=== PATIENT | male | born 1980 | race Caucasian/White ===

== ENCOUNTER 2017-10-18 22:41 | Inpatient (IN) | payer OTHER ==
[2017-10-18 23:08] VITALS: BMI 25.8
[2017-10-18] MEDS ORDERED: Sodium Chloride 0.9% 1,000 ML IV ONE (23:35)
[2017-10-18] MEDS ORDERED: Multivitamin (MVI) 10 ML, Thiamine 100 MG, Folic Acid 1 MG in Sodium Chloride 0.9% 1,00... IV ONE (23:38)
[2017-10-19] MEDS ORDERED: Morphine 4 MG/ML VIAL ONE
[2017-10-19 00:09] LABS: INR 0.9; PROTHROMBIN TIME 10.1 SECONDS (9.7-12.2)
[2017-10-19 00:17] LABS: BASO % 0.7 % (0.0-2.0); EOS % 1.2 % (0.0-4.0); HEMOGLOBIN 13.7 g/dL (12.0-18.0); LYMPH # 1.1 K/uL (1.0-4.3); LYMPH % 36.8 % (20.0-40.0); MEAN CELL VOLUME 93.8 fL (80.0-94.0); MEAN CORPUSCULAR HEMOGLOBIN 32.3 pg (27.0-31.0); MEAN CORPUSCULAR HGB CONC 34.4 g/dL (33.0-37.0); MEAN PLATELET VOLUME 7.6 fL (7.2-11.7); MONO # 0.2 K/uL (0.0-0.8); MONO % 6.4 % (0.0-10.0); NEUT # 1.6 K/uL (1.8-7.0); NEUT % 54.9 % (50.0-75.0); NRBC % 0.1 % (0.0-2.0); RBC 4.25 Mil/uL (4.40-5.90); RED CELL DISTRIBUTION WIDTH 14.8 % (11.5-14.5); WHITE BLOOD COUNT 2.9 K/uL (4.8-10.8)
[2017-10-19 00:24] LABS: ALB/GLOB RATIO 1.3 (1.0-2.1); ALBUMIN 4.8 g/dL (3.5-5.0); ALT/SGPT 226 U/L (21-72); AST/SGOT 286 U/L (17-59); BLOOD UREA NITROGEN 6 mg/dL (9-20); CALCIUM 7.6 mg/dl (8.6-10.4); GFR AFRICAN-AMERICAN > 60; GFR NON-AFRICAN AMERICAN > 60; LIPASE 451 U/L (23-300)
--- NOTE | 2017-10-19 01:03 | C.PDOC ---
History Of Present Illness <Gab Pham - Last Filed: 10/19/17 11:38> <Lilli Cash - Last Filed: 10/19/17 20:08> 37 year old male is brought to the ED by his for evaluation of epistaxis, bloody vomit and abdominal pain. Patient's states patient has been drinking for 17 days straight and has not eaten much food. Patient was sober for 3 months and then 17 days ago started drinking again. Patient has noticed his face and hands are swollen. Patient denies fever, chills, back pain, diarrhea. (Lilli Cash) <Gab Pham M - Last Filed: 10/19/17 11:38> History Per: Patient History/Exam Limitations: no limitations Onset/Duration Of Symptoms: Days Current Symptoms Are (Timing): Still Present Location Of Pain/Discomfort: Diffuse Radiation Of Pain To:: None Quality Of Discomfort: "Pain" Associated Symptoms: Nausea, Vomiting Exacerbating Factors: None Alleviating Factors: None Recent travel outside of the [place]: No Additional History Per: Patient <Lilli Cash - Last Filed: 10/19/17 20:08> Time Seen by Provider: 10/18/17 23:26 Chief Complaint (Nursing): GI Problem Past Medical History Reviewed: Historical Data, Nursing Documentation, Vital Signs - Medical History PMH: HTN (unverified), Seizures Surgical History: No Surg Hx Family History: States: Unknown Family Hx - Social History Hx Tobacco Use: No Hx Alcohol Use: Yes Hx Substance Use: No (denies) - Immunization History Hx Tetanus Toxoid Vaccination: No Hx Influenza Vaccination: No Hx Pneumococcal Vaccination: No <Lilli Cash - Last Filed: 10/19/17 20:08> Vital Signs: Last Vital Signs Temp 99 F 10/19/17 16:04 Pulse 91 H 10/19/17 16:04 Resp 20 10/19/17 16:04 BP 133/78 10/19/17 16:04 Pulse Ox 96 10/19/17 16:04 - [facility] Procedures ALCOHOL DETOXIFICATION (05/08/14) INFLUENZA VACCINATION (05/08/14) Review Of Systems Constitutional: Negative for: Fever, Chills Cardiovascular: Negative for: Chest Pain, Palpitations Respiratory: Negative for: Cough, Shortness of Breath Gastrointestinal: Positive for: Vomiting, Abdominal Pain. Negative for: Nausea Skin: Negative for: Rash Neurological: Negative for: Weakness, Numbness <Lilli Cash - Last Filed: 10/19/17 20:08> Physical Exam - Physical Exam Appears: Non-toxic, No Acute Distress Skin: Normal Color, Warm, Dry Head: Atraumatic, Normacephalic Eye(s): bilateral: Normal Inspection Nose: No Discharge Oral Mucosa: Moist Neck: Normal ROM, Supple Chest: Symmetrical Cardiovascular: Rhythm Regular, No Murmur Respiratory: Normal Breath Sounds, No Rales, No Rhonchi, No Wheezing Gastrointestinal/Abdominal: Soft, No Tenderness, No Guarding, No Rebound Extremity: Normal ROM, No Tenderness, No Swelling Neurological/Psych: Oriented x3 Gait: Unable To Assess <Lilli Cash - Last Filed: 10/19/17 20:08> ED Course And Treatment - Laboratory Results Result Diagrams: 10/18/17 23:56 10/18/17 23:56 <Gab Pham - Last Filed: 10/19/17 11:38> - Laboratory Results Result Diagrams: 10/19/17 12:00 10/18/17 23:56 O2 Sat by Pulse Oximetry: 95 (On RA) Pulse Ox Interpretation: Normal <Lilli Cash - Last Filed: 10/19/17 20:08> Medical Decision Making <Gab Pham - Last Filed: 10/19/17 11:38> <Lilli Cash - Last Filed: 10/19/17 20:08> Medical Decision Making: Impression: alcoholic gastritis Plan: * Labs * Ativan 2 mg IVP * Morphine 4 mg IVP * IV fluids * Protonix 40 mg IVP * Zofran 4 mg IVP (Lilli Cash) Disposition <Gab Pham - Last Filed: 10/19/17 11:38> - Disposition Disposition Time: 20:07 <Lilli Cash - Last Filed: 10/19/17 20:08> - Disposition Disposition: HOSPITALIZED Condition: FAIR - Clinical Impression Clinical Impression: Abdominal pain, Alcoholic hepatitis <Gab Pham - Last Filed: 10/19/17 11:38> - Scribe Statement The provider has reviewed the documentation as recorded by the Scribe <Lilli Cash - Last Filed: 10/19/17 20:08> - Scribe Statement Gagan Hall All medical record entries made by the Scribe were at my direction and personally dictated by me. I have reviewed the chart and agree that the record accurately reflects my personal performance of the history, physical exam, medical decision making, and the department course for this patient. I have also personally directed, reviewed, and agree with the discharge instructions and disposition. (Lilli Cash) Addendum <Gab Pham - Last Filed: 10/19/17 11:38> <Lilli Cash - Last Filed: 10/19/17 20:08> Addendum: Received patient in sign out. Pt with abd. pain and controlled epistaxis. (+) pancreatitis. Cased discussed with hospitalist and will admit to medical surgical floor. 10/19/17 11:38 (Gab Pham) Disposition Discussed With Dr.: Ayad Lucia Doctor Will See Patient In The: Hospital Counseled Patient/Family Regarding: Studies Performed Disposition Time: 11:40 <Gab Pham - Last Filed: 10/19/17 11:38> <Lilli Cash - Last Filed: 10/19/17 20:08> Clinical Impression: Abdominal pain, Alcoholic hepatitis Disposition: HOSPITALIZED Condition: FAIR
[2017-10-19] MEDS ORDERED: Thiamine 100 mg/ml Inj IV ONE (10:52)
[2017-10-19] MEDS ORDERED: Sodium Chloride 0.9% 1,000 ML IV ONE (10:58)
[2017-10-19] MEDS ORDERED: Thiamine 100 mg/ml Inj ONE (11:21)
[2017-10-19 12:04] LABS: BASO % 0.3 % (0.0-2.0); EOS % 0.9 % (0.0-4.0); HEMOGLOBIN 12.4 g/dL (12.0-18.0); LYMPH # 0.7 K/uL (1.0-4.3); LYMPH % 17.3 % (20.0-40.0); MEAN CELL VOLUME 94.3 fL (80.0-94.0); MEAN CORPUSCULAR HEMOGLOBIN 32.2 pg (27.0-31.0); MEAN CORPUSCULAR HGB CONC 34.2 g/dL (33.0-37.0); MEAN PLATELET VOLUME 7.4 fL (7.2-11.7); MONO # 0.2 K/uL (0.0-0.8); MONO % 4.6 % (0.0-10.0); NEUT # 3.2 K/uL (1.8-7.0); NEUT % 76.9 % (50.0-75.0); RBC 3.85 Mil/uL (4.40-5.90); RED CELL DISTRIBUTION WIDTH 14.7 % (11.5-14.5); WHITE BLOOD COUNT 4.1 K/uL (4.8-10.8)
[2017-10-19] MEDS ORDERED: Multivitamin (MVI) 10 ML, Folic Acid 1 MG in Sodium Chloride 0.9% 1,000 ML IV ONE (14:15)
--- NOTE | 2017-10-19 14:25 | CP.PCM.HP ---
<SahilGabby hurstri AllHa - Last Filed: 10/19/17 14:13> History of Present Illness - History of Present Illness History of Present Illness: HPI: Patient is a 37 year old male with no past medical history, who was brought to the ED by his for alcohol abuse and epistaxis. Patient states his nose started to bleeding heavily yesterday and has been constant. He also complains of 1 week of epigastric pain, 4 days of nausea and vomiting, and 3 days of tremors and auditory hallucinations (hears music). Patient states he notice "a lot of blood" in his vomit since yesterday and today. Patient states he has been drinking heavily for 16 days- he drinks 6, 40-oz beers and vodka ( unsure quantity). He says there is no specific reason he started to drink heavily. Patient denies chest pain, fevers, dysuria, diarrhea, constipation, unusual bruising, frequent falls, recent illnesses/sick contacts. Per EMR, the patient has been to the hospital several times for alcohol abuse; however, patient states this is his first time in the hospital and does not usually drink heavily. 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 Medications: none Allergies: NKDA Present on Admission - Present on Admission Any Indicators Present on Admission: No Review of Systems - Constitutional Constitutional: Headache, Weight Loss (10 lbs in 1 month due to not eating), Weakness. absent: Chills, Fever - EENT Eyes: absent: Change in Vision Nose/Mouth/Throat: Epistaxis - Cardiovascular Cardiovascular: Palpitations (occasional). absent: Chest Pain, Dyspnea, Leg Edema - Respiratory Respiratory: absent: Cough, Dyspnea - Gastrointestinal Gastrointestinal: Abdominal Pain (epigastric), Hematemesis, Nausea, Vomiting. absent: Constipation, Diarrhea, Hematochezia - Genitourinary Genitourinary: absent: Dysuria, Hematuria, Urinary Frequency - Neurological Neurological: Dizziness, Headaches, Tremor, Weakness. absent: Frequent Falls - Endocrine Endocrine: absent: Palpitations - Hematologic/Lymphatic Hematologic: absent: Easy Bleeding, Easy Bruising Past Patient History - Infectious Disease Hx of Infectious Diseases: None - Tetanus Immunizations Tetanus Immunization: Unknown - Past Medical History & Family History Past Medical History?: No - Past Social History Smoking Status: Never Smoked - CARDIAC Hx Hypertension: Yes (unverified) - PULMONARY Hx Respiratory Disorders: No - NEUROLOGICAL Hx Seizures: Yes - HEENT Hx HEENT Problems: No - ENDOCRINE/METABOLIC Hx Endocrine Disorders: No - HEMATOLOGICAL/ONCOLOGICAL Hx Blood Disorders: No - INTEGUMENTARY Hx Dermatological Problems: No - MUSCULOSKELETAL/RHEUMATOLOGICAL Hx Musculoskeletal Disorders: No - GASTROINTESTINAL Hx Gastrointestinal Disorders: No - GENITOURINARY/GYNECOLOGICAL Hx Genitourinary Disorders: No - PSYCHIATRIC Hx Substance Use: No (denies) - SURGICAL HISTORY Hx Surgeries: No - ANESTHESIA Hx Anesthesia: No Meds Allergies/Adverse Reactions: Allergies Allergy/AdvReac Type Severity Reaction Status Date / Time No Known Allergies Allergy Verified 10/18/17 23:08 Physical Exam - Constitutional Appears: No Acute Distress - Head Exam Head Exam: ATRAUMATIC, NORMOCEPHALIC - Eye Exam Eye Exam: EOMI, Normal appearance - ENT Exam ENT Exam: Mucous Membranes Moist - Respiratory Exam Respiratory Exam: NORMAL BREATHING PATTERN. absent: Respiratory Distress - Cardiovascular Exam Cardiovascular Exam: REGULAR RHYTHM, +S1, +S2 - GI/Abdominal Exam GI & Abdominal Exam: Normal Bowel Sounds, Soft, Tenderness (epigastric with superficial palpation, diffuse throughout with deep palpation). absent: Distended - Extremities Exam Extremities exam: Positive for: normal inspection - Neurological Exam Neurological exam: Alert, Oriented x3 - Psychiatric Exam Psychiatric exam: Flat Affect - Skin Skin Exam: Dry, Intact, Normal Color, Warm Results - Vital Signs Recent Vital Signs: Last Vital Signs Temp 98.4 F 10/19/17 13:20 Pulse 90 10/19/17 13:20 Resp 18 10/19/17 13:20 BP 137/79 10/19/17 13:20 Pulse Ox 97 10/19/17 13:20 - Labs Result Diagrams: 10/19/17 12:00 10/18/17 23:56 Labs: Laboratory Results - last 24 hr 10/18/17 10/18/17 10/18/17 23:13 23:56 23:56 WBC 2.9 L RBC 4.25 L Hgb 13.7 Hct 39.9 MCV 93.8 D MCH 32.3 H MCHC 34.4 RDW 14.8 H Plt Count 74 L D MPV 7.6 Neut % (Auto) 54.9 Lymph % (Auto) 36.8 Dickenson % (Auto) 6.4 Eos % (Auto) 1.2 Baso % (Auto) 0.7 Neut # (Auto) 1.6 L Lymph # (Auto) 1.1 Dickenson # (Auto) 0.2 Eos # (Auto) 0.0 Baso # (Auto) 0.0 PT 10.1 INR 0.9 APTT 28 Sodium Potassium Chloride Carbon Dioxide Anion Gap BUN Creatinine Est GFR ( Amer) Est GFR (Non-Af Amer) POC Glucose (mg/dL) 119 H Random Glucose Calcium Total Bilirubin AST ALT Alkaline Phosphatase Total Protein Albumin Globulin Albumin/Globulin Ratio Lipase Alcohol, Quantitative Blood Type Antibody Screen 10/18/17 10/18/17 10/19/17 23:56 23:56 12:00 WBC 4.1 L RBC 3.85 L Hgb 12.4 Hct 36.3 MCV 94.3 H MCH 32.2 H MCHC 34.2 RDW 14.7 H Plt Count 66 L MPV 7.4 Neut % (Auto) 76.9 H Lymph % (Auto) 17.3 L Dickenson % (Auto) 4.6 Eos % (Auto) 0.9 Baso % (Auto) 0.3 Neut # (Auto) 3.2 Lymph # (Auto) 0.7 L Dickenson # (Auto) 0.2 Eos # (Auto) 0.0 Baso # (Auto) 0.0 PT INR APTT Sodium 143 Potassium 3.7 Chloride 101 Carbon Dioxide 22 Anion Gap 24 H BUN 6 L Creatinine 0.6 L Est GFR ( Amer) > 60 Est GFR (Non-Af Amer) > 60 POC Glucose (mg/dL) Random Glucose 115 H Calcium 7.6 L Total Bilirubin 1.1 AST 286 H ALT 226 H D Alkaline Phosphatase 97 Total Protein 8.5 H Albumin 4.8 Globulin 3.6 Albumin/Globulin Ratio 1.3 Lipase 451 H Alcohol, Quantitative 486 H Blood Type O POSITIVE Antibody Screen Negative Assessment & Plan (1) Alcohol withdrawal Assessment and Plan: Hx of alcohol abuse and withdrawal [facility] protocol Seizure and fall precautions Serum alcohol at admission: 486 F/u repeat serum alcohol Medication: - Ativan 2mg IV Q4hr lovely, 1mg IV Q6 prn - Banana bag IV - PO thiamine 100mg BID, multivitamins, folic acid (start on 10/19/17) Status: Acute (2) Epistaxis Assessment and Plan: Likely secondary to low platelets, secondary to alcohol abuse Chemical anticoagulation contraindicated H/H: 12.4/36.3 F/U repeat CBC Type and screen Continue to monitor Status: Acute (3) Abdominal pain Assessment and Plan: Abdominal CT ordered: f/u to r/u pancreatitis Lipase 451 Status: Acute (4) Transaminitis Assessment and Plan: Likely secondary to alcohol abuse AST: 286 ALT: 226 Continue to monitor Status: Acute (5) Hematemesis Assessment and Plan: Likely secondary to alcohol abuse, epistaxis and thrombocytopenia GI consult- Dr. Walker, help appreciated Protonix Drip NPO Zofran 4mg IV PRN for nausea/vomiting Status: Acute (6) Prophylactic measure Assessment and Plan: DVT: SCDs; chemical anticoagulation C/I due to thrombocytopenia GI: Protonix drip NPO Seizure/Fall precautions PT Status: Acute <Rome Anne H - Last Filed: 10/19/17 15:47> Results - Vital Signs Recent Vital Signs: Last Vital Signs Temp 98.4 F 10/19/17 13:20 Pulse 90 10/19/17 13:20 Resp 18 10/19/17 13:20 BP 137/79 10/19/17 13:20 Pulse Ox 97 10/19/17 13:20 - Labs Result Diagrams: 10/19/17 12:00 10/18/17 23:56 Labs: Laboratory Results - last 24 hr 10/18/17 10/18/17 10/18/17 23:13 23:56 23:56 WBC 2.9 L RBC 4.25 L Hgb 13.7 Hct 39.9 MCV 93.8 D MCH 32.3 H MCHC 34.4 RDW 14.8 H Plt Count 74 L D MPV 7.6 Neut % (Auto) 54.9 Lymph % (Auto) 36.8 Dickenson % (Auto) 6.4 Eos % (Auto) 1.2 Baso % (Auto) 0.7 Neut # (Auto) 1.6 L Lymph # (Auto) 1.1 Dickenson # (Auto) 0.2 Eos # (Auto) 0.0 Baso # (Auto) 0.0 PT 10.1 INR 0.9 APTT 28 Sodium Potassium Chloride Carbon Dioxide Anion Gap BUN Creatinine Est GFR ( Amer) Est GFR (Non-Af Amer) POC Glucose (mg/dL) 119 H Random Glucose Calcium Total Bilirubin AST ALT Alkaline Phosphatase Total Protein Albumin Globulin Albumin/Globulin Ratio Lipase Alcohol, Quantitative Blood Type Antibody Screen 10/18/17 10/18/17 10/19/17 23:56 23:56 12:00 WBC 4.1 L RBC 3.85 L Hgb 12.4 Hct 36.3 MCV 94.3 H MCH 32.2 H MCHC 34.2 RDW 14.7 H Plt Count 66 L MPV 7.4 Neut % (Auto) 76.9 H Lymph % (Auto) 17.3 L Dickenson % (Auto) 4.6 Eos % (Auto) 0.9 Baso % (Auto) 0.3 Neut # (Auto) 3.2 Lymph # (Auto) 0.7 L Dickenson # (Auto) 0.2 Eos # (Auto) 0.0 Baso # (Auto) 0.0 PT INR APTT Sodium 143 Potassium 3.7 Chloride 101 Carbon Dioxide 22 Anion Gap 24 H BUN 6 L Creatinine 0.6 L Est GFR ( Amer) > 60 Est GFR (Non-Af Amer) > 60 POC Glucose (mg/dL) Random Glucose 115 H Calcium 7.6 L Total Bilirubin 1.1 AST 286 H ALT 226 H D Alkaline Phosphatase 97 Total Protein 8.5 H Albumin 4.8 Globulin 3.6 Albumin/Globulin Ratio 1.3 Lipase 451 H Alcohol, Quantitative 486 H Blood Type O POSITIVE Antibody Screen Negative Attending/Attestation - Attestation I have personally seen and examined this patient.: Yes I have fully participated in the care of the patient.: Yes I have reviewed all pertinent clinical information: Yes Notes (Text): 10/19/17 15:41 Medical attending: Patient was seen and examined by me. Agree with the above note by the resident The patient was alrady on 3rd floor when we saw and examined him. Despite his young age, he is a VERY heavy drinker. We will do a sceduled IV ativan to be given and see how he does. Then we will try decreasing as we see and examine the patient. IVF, banna bag, and also PO thiamine and PO folic acid He has what appears to be epsistaix as well. There is blood in his mouth. It is not clear if he has been vommitting blood or if the blood in his mouth is from the epistaxis - he is still intoxicated at the time we saw him. Will start a protonix ggt, type and screen, IVF and NPO for the time being. We are still pending a CT scan of the abdomen and pelvis. Will need to rechek serum ETOH, Lipase, and CBC tonight. Currently appears stable but if his condition changes then he may need to goto ICU thank you Rome Anne
[2017-10-19] MEDS: Pantoprazole 80 MG in Sodium Chloride 0.9% 100 ML IVP SCH (14:36)
[2017-10-19] MEDS ORDERED: Iodixanol 320 MG/ML 100 ML BOTTLE IV ONE (17:55)
--- NOTE | 2017-10-19 19:18 | CT ---
EXAM: CT Abdomen and Pelvis With Intravenous Contrast EXAM DATE/TIME: 10/19/2017 11:35 AM CLINICAL HISTORY: 37 years old, male; Condition or disease; Pancreatic condition; Pancreatitis; Additional info: Abd. Pain TECHNIQUE: Axial computed tomography images of the abdomen and pelvis with intravenous contrast. All CT scans at this facility use one or more dose reduction techniques, viz.: automated exposure control; ma/kV adjustment per patient size (including targeted exams where dose is matched to indication; i.e. head); or iterative reconstruction technique. Coronal and sagittal reformatted images were created and reviewed. CONTRAST: 100 mL of visipaque 320 administered intravenously. COMPARISON: CT - ABD PELVIS W/O PO OR IV CONT 2015-01-06 20:12 FINDINGS: Lower thorax: The heart is mildly enlarged. There is atelectasis and scarring at the lung bases. There is gynecomastia on the right. ABDOMEN: Liver: There is fatty infiltration of the liver.The liver is enlarged. Gallbladder and bile ducts: unremarkable Pancreas: Pancreas is mildly atrophic. Spleen: unremarkable Adrenals: unremarkable Kidneys and ureters: unremarkable Stomach and bowel: Stomach is incompletely distended which accentuates the gastric wall.Bowel rotation is normal. There is mild duodenal and proximal jejunal fold prominence. There are mildly dilated small bowel loops in the midabdomen. Distention decreases distally. There is fluid and air throughout the small bowel. There is no small bowel obstruction. There is mild terminal ileal wall thickening. Appendix is unremarkable. Colon is incompletely distended which limits evaluation. There is ascending colon and transverse colon wall thickening. Thickening decreases in the descending colon. Appendix: See stomach and bowel PELVIS: Bladder: unremarkable Reproductive: Seminal vesicles and prostate are unremarkable. ABDOMEN and PELVIS: Intraperitoneal space: There is no free air or free fluid. Bones/joints: There are no acute osseous abnormalities. Soft tissues: There is a small fat containing umbilical hernia. There is a small lateral hernia. Vasculature: Vascular structures are unremarkable. Lymph nodes: There is no pathologic adenopathy. IMPRESSION: Enlarged fatty liver; no CT findings of acute/complicated pancreatitis; colitis/enterocolitis with probable ileus, no obstruction Additional nonemergent findings as described above.
[2017-10-19 23:26] LABS: BASO % 0.5 % (0.0-2.0); EOS % 0.1 % (0.0-4.0); HEMOGLOBIN 12.9 g/dL (12.0-18.0); LYMPH # 0.6 K/uL (1.0-4.3); LYMPH % 7.8 % (20.0-40.0); MEAN CELL VOLUME 94.3 fL (80.0-94.0); MEAN CORPUSCULAR HEMOGLOBIN 32.8 pg (27.0-31.0); MEAN CORPUSCULAR HGB CONC 34.7 g/dL (33.0-37.0); MEAN PLATELET VOLUME 7.5 fL (7.2-11.7); MONO # 0.2 K/uL (0.0-0.8); NEUT # 6.4 K/uL (1.8-7.0); NEUT % 88.6 % (50.0-75.0); PLATELET COUNT 62 K/uL (130-400); RBC 3.94 Mil/uL (4.40-5.90); RED CELL DISTRIBUTION WIDTH 14.8 % (11.5-14.5); WHITE BLOOD COUNT 7.2 K/uL (4.8-10.8)
[2017-10-19 23:45] LABS: BANDS 1 % (0-2); EOSINOPHIL 1 % (0-4); LYMPHOCYTE 6 % (20-40); MONOCYTE 3 % (0-10); NEUTROPHIL 89 % (50-75); TOTAL CELLS COUNTED 100
[2017-10-19 23:46] LABS: PLATELET ESTIMATE DECREASED (NORMAL)
[2017-10-20] MEDS: Pantoprazole 80 MG in Sodium Chloride 0.9% 100 ML IVP SCH (00:10)
[2017-10-20] MEDS: Sodium Chloride 0.9% 1,000 ML IV SCH ×3 (01:05→20:15)
[2017-10-20 01:36] LABS: BARBITURATES, UR NEGATIVE (NEGATIVE); BENZODIAZEPINES, UR NEGATIVE (NEGATIVE); PHENCYCLIDINE, UR NEGATIVE (NEGATIVE)
[2017-10-20 01:38] LABS: OPIATES, UR POSITIVE (NEGATIVE)
--- NOTE | 2017-10-20 07:49 | CP.PCM.PN ---
<Patrice Negrete - Last Filed: 10/20/17 10:04> Subjective - Date & Time of Evaluation Date of Evaluation: 10/20/17 Time of Evaluation: 07:50 - Subjective Subjective: Medicine progress note for Dr. Anne Patient seen and examined. Patient reports that he has no abdominal pain or any bleeding today. He is requesting advancement in diet. Patient has no other acute complaints at this time and is not tremulous. He stated that his last drink was two days ago. Patient is for EGD later this morning. Objective - Vital Signs/Intake and Output Vital Signs (last 24 hours): Temp Pulse Resp BP Pulse Ox 98.5 F 98 H 20 120/70 96 10/20/17 00:00 10/20/17 00:00 10/20/17 00:00 10/20/17 00:00 10/20/17 00:00 Intake and Output: 10/20/17 10/20/17 06:59 18:59 Intake Total 1680 Output Total 980 Balance 700 - Medications Medications: Current Medications Folic Acid (Folic Acid) 1 mg PO DAILY MARIAN Pantoprazole Sodium 80 mg/ (Sodium Chloride) 100 mls @ 10 mls/hr IVP .Q10H MARIAN PRN Reason: 8 MG/HR Last Admin: 10/20/17 00:10 Dose: 10 mls/hr Sodium Chloride (Sodium Chloride 0.9%) 1,000 mls @ 100 mls/hr IV .Q10H MARIAN Last Admin: 10/20/17 01:05 Dose: 100 mls/hr Lorazepam (Ativan) 2 mg IVP Q4H MARIAN Last Admin: 10/20/17 06:06 Dose: 2 mg Lorazepam (Ativan) 1 mg IVP Q6H PRN PRN Reason: Symptoms of alcohol withdrawl Multivitamins/Vitamin C (Multi-Delyn Liquid) 5 ml PO DAILY MARIAN Ondansetron HCl (Zofran Inj) 4 mg IVP Q6 PRN PRN Reason: Nausea/Vomiting Thiamine HCl (Vitamin B1 Tab) 100 mg PO BID MARIAN - Labs Labs: 10/19/17 23:23 10/18/17 23:56 PT 10.1 SECONDS (9.7-12.2) 10/18/17 23:56 INR 0.9 10/18/17 23:56 APTT 28 SECONDS (21-34) 10/18/17 23:56 - Additional Findings Additional findings: - Constitutional Appears: No Acute Distress - Head Exam Head Exam: ATRAUMATIC, NORMOCEPHALIC - Eye Exam Eye Exam: EOMI, Normal appearance - ENT Exam ENT Exam: Mucous Membranes Moist - Respiratory Exam Respiratory Exam: NORMAL BREATHING PATTERN. absent: Respiratory Distress - Cardiovascular Exam Cardiovascular Exam: REGULAR RHYTHM, +S1, +S2 - GI/Abdominal Exam GI & Abdominal Exam: Normal Bowel Sounds, Soft. absent: Distended, Tenderness - Extremities Exam Extremities exam: Positive for: normal inspection - Neurological Exam Neurological exam: Alert, Oriented x3 - Psychiatric Exam Psychiatric exam: Flat Affect - Skin Skin Exam: Dry, Intact, Normal Color, Warm Assessment and Plan - Assessment and Plan (Free Text) Plan: (1) Alcohol withdrawal Hx of alcohol abuse and withdrawal [facility] protocol Seizure and fall precautions Serum alcohol at admission: 486 Repeat serum alcohol negative Medication: - Scheduled Ativan 2mg IV Q4hr - PRN Ativan 1mg IV Q6 - Banana bag IV at admission - PO thiamine 100mg BID, multivitamins, folic acid (2) Epistaxis Likely secondary to low platelets, secondary to alcohol abuse Chemical anticoagulation contraindicated Type and screen Continue to monitor (3) Abdominal pain Abdominal CT ordered to r/u pancreatitis: Findings include hepatomegaly, fatty liver,colitis/enterocolitis with probable ileus. No obstruction seen. Mildly atrophic pancreas. Lipase 451 (4) Transaminitis Likely secondary to alcohol abuse f/u hepatitis panel Continue to monitor (5) Hematemesis Likely secondary to alcohol abuse, epistaxis and thrombocytopenia GI consult- Dr. Walker, tanya ross EGD did not show sources of bleeding, just some mild gastritis Would benefit from outpatient GI follow up Zofran 4mg IV PRN for nausea/vomiting (6) Prophylactic measure DVT: SCDs; chemical anticoagulation C/I due to thrombocytopenia GI: Protonix 40 mg PO daily Regular Diet Seizure/Fall precautions PT Disposition: Continue to monitor for signs of alcohol withdrawal. Will taper the Ativan as we proceed. Patient has significant alcohol history for many years and he states that he needs to drink in order to be functional. Discussed with Dr. Dayana Negrete PGY-1 <Rome Anne - Last Filed: 10/20/17 11:58> Objective - Vital Signs/Intake and Output Vital Signs (last 24 hours): Temp Pulse Resp BP Pulse Ox 97.2 F L 83 21 131/81 96 10/20/17 09:20 10/20/17 09:50 10/20/17 09:50 10/20/17 09:50 10/20/17 09:50 Intake and Output: 10/20/17 10/20/17 06:59 18:59 Intake Total 1680 500 Output Total 980 Balance 700 500 - Medications Medications: Current Medications Folic Acid (Folic Acid) 1 mg PO DAILY COUNTS INCLUDE 234 BEDS AT THE [facility] Last Admin: 10/20/17 10:30 Dose: 1 mg Sodium Chloride (Sodium Chloride 0.9%) 1,000 mls @ 100 mls/hr IV .Q10H COUNTS INCLUDE 234 BEDS AT THE [facility] Last Admin: 10/20/17 10:31 Dose: Not Given Lorazepam (Ativan) 2 mg IVP Q4H COUNTS INCLUDE 234 BEDS AT THE [facility] Last Admin: 10/20/17 10:31 Dose: 2 mg Lorazepam (Ativan) 1 mg IVP Q6H PRN PRN Reason: Symptoms of alcohol withdrawl Multivitamins/Vitamin C (Multi-Delyn Liquid) 5 ml PO DAILY COUNTS INCLUDE 234 BEDS AT THE [facility] Last Admin: 10/20/17 10:30 Dose: 5 ml Ondansetron HCl (Zofran Inj) 4 mg IVP Q6 PRN PRN Reason: Nausea/Vomiting Pantoprazole Sodium (Protonix Ec Tab) 40 mg PO DAILY COUNTS INCLUDE 234 BEDS AT THE [facility] Last Admin: 10/20/17 10:30 Dose: 40 mg Thiamine HCl (Vitamin B1 Tab) 100 mg PO BID COUNTS INCLUDE 234 BEDS AT THE [facility] Last Admin: 10/20/17 10:30 Dose: 100 mg - Labs Labs: 10/20/17 07:58 10/20/17 07:58 PT 10.1 SECONDS (9.7-12.2) 10/18/17 23:56 INR 0.9 10/18/17 23:56 APTT 28 SECONDS (21-34) 10/18/17 23:56 Attending/Attestation - Attestation I have personally seen and examined this patient.: Yes I have fully participated in the care of the patient.: Yes I have reviewed all pertinent clinical information, including history, physical exam and plan: Yes Notes (Text): Medical attending: Patient was seen and examined by me, agrees the above note by senior medical transcriptionist. The patient was seen in endoscopy lab, he underwent an EGD and this did not show any acute bleeding findings. He was not in any acute distress when we saw him, as mentioned previously he's on IV Ativan every 4 hours due to the very heavy alcohol use. Unfortunately on was just recently told that he's trying to sign out AMA. Thank you very much, Rome Anne
[2017-10-20 08:09] LABS: BASO % 0.3 % (0.0-2.0); EOS % 0.2 % (0.0-4.0); LYMPH # 0.4 K/uL (1.0-4.3); LYMPH % 7.4 % (20.0-40.0); MEAN CELL VOLUME 95.4 fL (80.0-94.0); MEAN CORPUSCULAR HEMOGLOBIN 32.4 pg (27.0-31.0); MEAN CORPUSCULAR HGB CONC 33.9 g/dL (33.0-37.0); MEAN PLATELET VOLUME 8.4 fL (7.2-11.7); MONO # 0.3 K/uL (0.0-0.8); MONO % 4.8 % (0.0-10.0); NEUT # 4.7 K/uL (1.8-7.0); NEUT % 87.3 % (50.0-75.0); NRBC % 0.1 % (0.0-2.0); PLATELET COUNT 64 K/uL (130-400); RBC 3.72 Mil/uL (4.40-5.90); RED CELL DISTRIBUTION WIDTH 14.9 % (11.5-14.5); WHITE BLOOD COUNT 5.4 K/uL (4.8-10.8)
[2017-10-20 08:23] LABS: ALB/GLOB RATIO 1.4 (1.0-2.1); ALBUMIN 4.2 g/dL (3.5-5.0); ALT/SGPT 269 U/L (21-72); AST/SGOT 463 U/L (17-59); BLOOD UREA NITROGEN 13 mg/dL (9-20); CALCIUM 8.3 mg/dl (8.6-10.4); GFR AFRICAN-AMERICAN > 60; GFR NON-AFRICAN AMERICAN > 60
[2017-10-20] MEDS ORDERED: Propofol 10 mg/ml Inj (20 ML) ONE (08:38)
[2017-10-20] MEDS ORDERED: Midazolam 2 MG/2 ML VIAL ONE (08:39)
--- NOTE | 2017-10-20 09:18 | CP.PCM.CON ---
<Nabila Lucia - Last Filed: 10/20/17 09:18> History of Present Illness - History of Present Illness History of Present Illness: PGY 4 Initial Gi Note Tre King is a 37M w/ hx of ETOH abuse who presents to the ER with complaints of epitaxsis/hematemesis. He admits to drinking at least 6 40oz beers and unquantified vodka daily for the past 16 days prior to admission. Prior to this binge, he was 3 months sober. Pt's stated that his last drink was 1 day prior to admission. He also reported having spontaneous right nostril epitaxisis. He admits to swallowing blood then experiencing emesis. He noted a large amoutn of blood and clot in his emesis at home. Upon arrival in the ED, he was started on PPI drip. He denies any abd pain, nausea or vomiting. Denies any NSAID or antiplatlet therapy. Denies any diarrhea or constipation. 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 Medications: none Endo hx: Denies any prior procedures Past Patient History - Infectious Disease Hx of Infectious Diseases: None - Tetanus Immunizations Tetanus Immunization: Unknown - Past Medical History & Family History Past Medical History?: No - Past Social History Smoking Status: Never Smoked - CARDIAC Hx Hypertension: Yes (unverified) - PULMONARY Hx Respiratory Disorders: No - NEUROLOGICAL Hx Seizures: Yes - HEENT Hx HEENT Problems: No - ENDOCRINE/METABOLIC Hx Endocrine Disorders: No - HEMATOLOGICAL/ONCOLOGICAL Hx Blood Disorders: No - INTEGUMENTARY Hx Dermatological Problems: No - MUSCULOSKELETAL/RHEUMATOLOGICAL Hx Musculoskeletal Disorders: No - GASTROINTESTINAL Hx Gastrointestinal Disorders: No - GENITOURINARY/GYNECOLOGICAL Hx Genitourinary Disorders: No - PSYCHIATRIC Hx Substance Use: No (denies) - SURGICAL HISTORY Hx Surgeries: No - ANESTHESIA Hx Anesthesia: No Meds Allergies/Adverse Reactions: Allergies Allergy/AdvReac Type Severity Reaction Status Date / Time No Known Allergies Allergy Verified 03/19/18 23:08 - Medications Medications: Current Medications Folic Acid (Folic Acid) 1 mg PO DAILY [facility] Pantoprazole Sodium 80 mg/ (Sodium Chloride) 100 mls @ 10 mls/hr IVP .Q10H [facility] PRN Reason: 8 MG/HR Last Admin: 10/20/17 00:10 Dose: 10 mls/hr Sodium Chloride (Sodium Chloride 0.9%) 1,000 mls @ 100 mls/hr IV .Q10H [facility] Last Admin: 10/20/17 01:05 Dose: 100 mls/hr Lorazepam (Ativan) 2 mg IVP Q4H [facility] Last Admin: 10/20/17 06:06 Dose: 2 mg Lorazepam (Ativan) 1 mg IVP Q6H PRN PRN Reason: Symptoms of alcohol withdrawl Multivitamins/Vitamin C (Multi-Delyn Liquid) 5 ml PO DAILY [facility] Ondansetron HCl (Zofran Inj) 4 mg IVP Q6 PRN PRN Reason: Nausea/Vomiting Thiamine HCl (Vitamin B1 Tab) 100 mg PO BID [facility] Physical Exam - Constitutional Appears: Well, No Acute Distress - Head Exam Head Exam: ATRAUMATIC, NORMOCEPHALIC - Eye Exam Eye Exam: Normal appearance - ENT Exam ENT Exam: Mucous Membranes Moist, Normal Exam - Neck Exam Neck exam: Positive for: Normal Inspection - Respiratory Exam Respiratory Exam: Clear to Auscultation Bilateral, NORMAL BREATHING PATTERN. absent: Rales, Rhonchi, Wheezes, Respiratory Distress - Cardiovascular Exam Cardiovascular Exam: REGULAR RHYTHM, +S1, +S2 - GI/Abdominal Exam GI & Abdominal Exam: Normal Bowel Sounds, Soft. absent: Distended, Guarding, Hernia, Rebound, Rigid, Tenderness - Extremities Exam Extremities exam: Negative for: joint swelling, pedal edema - Neurological Exam Neurological exam: Alert, Oriented x3 - Psychiatric Exam Psychiatric exam: Normal Affect, Normal Mood - Skin Skin Exam: Dry, Intact, Normal Color, Warm Results - Vital Signs Recent Vital Signs: Last Vital Signs Temp 98.5 F 10/20/17 08:44 Pulse 97 H 10/20/17 08:44 Resp 20 10/20/17 08:44 BP 128/69 10/20/17 08:44 Pulse Ox 99 10/20/17 08:44 - Labs Result Diagrams: 10/20/17 07:58 10/20/17 07:58 Labs: Laboratory Results - last 24 hr 10/18/17 10/19/17 10/19/17 23:13 12:00 16:31 WBC 4.1 L RBC 3.85 L Hgb 12.4 Hct 36.3 MCV 94.3 H MCH 32.2 H MCHC 34.2 RDW 14.7 H Plt Count 66 L MPV 7.4 Neut % (Auto) 76.9 H Lymph % (Auto) 17.3 L [place] % (Auto) 4.6 Eos % (Auto) 0.9 Baso % (Auto) 0.3 Neut # (Auto) 3.2 Lymph # (Auto) 0.7 L [place] # (Auto) 0.2 Eos # (Auto) 0.0 Baso # (Auto) 0.0 Neutrophils % (Manual) Band Neutrophils % Lymphocytes % (Manual) Monocytes % (Manual) Eosinophils % (Manual) Platelet Estimate Sodium Potassium Chloride Carbon Dioxide Anion Gap BUN Creatinine Est GFR ( Amer) Est GFR (Non-Af Amer) POC Glucose (mg/dL) 119 H 81 Random Glucose Calcium Phosphorus Magnesium Total Bilirubin AST ALT Alkaline Phosphatase Total Protein Albumin Globulin Albumin/Globulin Ratio Urine Opiates Screen Urine Methadone Screen Ur Barbiturates Screen Ur Phencyclidine Scrn Ur Amphetamines Screen U Benzodiazepines Scrn U Oth Cocaine Metabols U Cannabinoids Screen Alcohol, Quantitative 10/19/17 10/19/17 10/19/17 21:05 23:23 23:23 WBC 7.2 D RBC 3.94 L Hgb 12.9 Hct 37.2 MCV 94.3 H MCH 32.8 H MCHC 34.7 RDW 14.8 H Plt Count 62 L MPV 7.5 Neut % (Auto) 88.6 H Lymph % (Auto) 7.8 L [place] % (Auto) 3.0 Eos % (Auto) 0.1 Baso % (Auto) 0.5 Neut # (Auto) 6.4 Lymph # (Auto) 0.6 L [place] # (Auto) 0.2 Eos # (Auto) 0.0 Baso # (Auto) 0.0 Neutrophils % (Manual) 89 H Band Neutrophils % 1 Lymphocytes % (Manual) 6 L Monocytes % (Manual) 3 Eosinophils % (Manual) 1 Platelet Estimate Decreased L Sodium Potassium Chloride Carbon Dioxide Anion Gap BUN Creatinine Est GFR ( Amer) Est GFR (Non-Af Amer) POC Glucose (mg/dL) 78 Random Glucose Calcium Phosphorus Magnesium Total Bilirubin AST ALT Alkaline Phosphatase Total Protein Albumin Globulin Albumin/Globulin Ratio Urine Opiates Screen Urine Methadone Screen Ur Barbiturates Screen Ur Phencyclidine Scrn Ur Amphetamines Screen U Benzodiazepines Scrn U Oth Cocaine Metabols U Cannabinoids Screen Alcohol, Quantitative < 10 10/20/17 10/20/17 10/20/17 01:04 07:58 07:58 WBC 5.4 RBC 3.72 L Hgb 12.0 Hct 35.5 MCV 95.4 H MCH 32.4 H MCHC 33.9 RDW 14.9 H Plt Count 64 L MPV 8.4 Neut % (Auto) 87.3 H Lymph % (Auto) 7.4 L [place] % (Auto) 4.8 Eos % (Auto) 0.2 Baso % (Auto) 0.3 Neut # (Auto) 4.7 Lymph # (Auto) 0.4 L [place] # (Auto) 0.3 Eos # (Auto) 0.0 Baso # (Auto) 0.0 Neutrophils % (Manual) Band Neutrophils % Lymphocytes % (Manual) Monocytes % (Manual) Eosinophils % (Manual) Platelet Estimate Sodium 139 Potassium 4.2 Chloride 100 Carbon Dioxide 18 L Anion Gap 25 H BUN 13 Creatinine 0.7 L Est GFR ( Amer) > 60 Est GFR (Non-Af Amer) > 60 POC Glucose (mg/dL) Random Glucose 83 Calcium 8.3 L Phosphorus 5.0 H Magnesium 2.0 Total Bilirubin 1.7 H AST 463 H D ALT 269 H Alkaline Phosphatase 88 Total Protein 7.2 Albumin 4.2 Globulin 3.0 Albumin/Globulin Ratio 1.4 Urine Opiates Screen Positive H Urine Methadone Screen Negative Ur Barbiturates Screen Negative Ur Phencyclidine Scrn Negative Ur Amphetamines Screen Negative U Benzodiazepines Scrn Negative U Oth Cocaine Metabols Negative U Cannabinoids Screen Negative Alcohol, Quantitative Assessment & Plan - Assessment and Plan (Free Text) Assessment: Tre King is a 37M w/ hx of alcohol abuse who presents with epitaxisis and hematemesis. s/p EGD POD#1: irregular GE junction; No obvious source of bleeding 1. Hematemesis is likely due to epitaxsis 2. Alcoholic Hepatitis; DF <32 3. Elevated LFTs likely 2/2 above; r/o viral and autoimmune etiology\ 4. Alcohol abuse Plan: -continue alcohol withdrawl protocol with ativan -D/C IV PPI and start PO protonix 40mg daily -start regular diet -will send hep panel and autoimmune w/u -CT findings of mild eteritis and colitis, recommend oupt colonoscopy] -advised alcohol cessation -no additional Gi intervention indicated -continue to trend LFTs D/W Dr. Rodriguez <Kenneth Rodriguez - Last Filed: 10/20/17 09:47> Meds - Medications Medications: Current Medications Folic Acid (Folic Acid) 1 mg PO DAILY [facility] Sodium Chloride (Sodium Chloride 0.9%) 1,000 mls @ 100 mls/hr IV .Q10H [facility] Last Admin: 10/20/17 01:05 Dose: 100 mls/hr Lorazepam (Ativan) 2 mg IVP Q4H [facility] Last Admin: 10/20/17 06:06 Dose: 2 mg Lorazepam (Ativan) 1 mg IVP Q6H PRN PRN Reason: Symptoms of alcohol withdrawl Multivitamins/Vitamin C (Multi-Delyn Liquid) 5 ml PO DAILY [facility] Ondansetron HCl (Zofran Inj) 4 mg IVP Q6 PRN PRN Reason: Nausea/Vomiting Pantoprazole Sodium (Protonix Ec Tab) 40 mg PO DAILY [facility] Thiamine HCl (Vitamin B1 Tab) 100 mg PO BID [facility] Results - Vital Signs Recent Vital Signs: Last Vital Signs Temp 97.2 F L 10/20/17 09:20 Pulse 100 H 10/20/17 09:20 Resp 22 10/20/17 09:20 BP 129/78 10/20/17 09:20 Pulse Ox 97 10/20/17 09:20 - Labs Result Diagrams: 10/20/17 07:58 10/20/17 07:58 Labs: Laboratory Results - last 24 hr 10/18/17 10/19/17 10/19/17 23:13 12:00 16:31 WBC 4.1 L RBC 3.85 L Hgb 12.4 Hct 36.3 MCV 94.3 H MCH 32.2 H MCHC 34.2 RDW 14.7 H Plt Count 66 L MPV 7.4 Neut % (Auto) 76.9 H Lymph % (Auto) 17.3 L [place] % (Auto) 4.6 Eos % (Auto) 0.9 Baso % (Auto) 0.3 Neut # (Auto) 3.2 Lymph # (Auto) 0.7 L [place] # (Auto) 0.2 Eos # (Auto) 0.0 Baso # (Auto) 0.0 Neutrophils % (Manual) Band Neutrophils % Lymphocytes % (Manual) Monocytes % (Manual) Eosinophils % (Manual) Platelet Estimate RBC Morphology Sodium Potassium Chloride Carbon Dioxide Anion Gap BUN Creatinine Est GFR ( Amer) Est GFR (Non-Af Amer) POC Glucose (mg/dL) 119 H 81 Random Glucose Calcium Phosphorus Magnesium Total Bilirubin AST ALT Alkaline Phosphatase Total Protein Albumin Globulin Albumin/Globulin Ratio Urine Opiates Screen Urine Methadone Screen Ur Barbiturates Screen Ur Phencyclidine Scrn Ur Amphetamines Screen U Benzodiazepines Scrn U Oth Cocaine Metabols U Cannabinoids Screen Alcohol, Quantitative 10/19/17 10/19/17 10/19/17 21:05 23:23 23:23 WBC 7.2 D RBC 3.94 L Hgb 12.9 Hct 37.2 MCV 94.3 H MCH 32.8 H MCHC 34.7 RDW 14.8 H Plt Count 62 L MPV 7.5 Neut % (Auto) 88.6 H Lymph % (Auto) 7.8 L [place] % (Auto) 3.0 Eos % (Auto) 0.1 Baso % (Auto) 0.5 Neut # (Auto) 6.4 Lymph # (Auto) 0.6 L [place] # (Auto) 0.2 Eos # (Auto) 0.0 Baso # (Auto) 0.0 Neutrophils % (Manual) 89 H Band Neutrophils % 1 Lymphocytes % (Manual) 6 L Monocytes % (Manual) 3 Eosinophils % (Manual) 1 Platelet Estimate Decreased L RBC Morphology Sodium Potassium Chloride Carbon Dioxide Anion Gap BUN Creatinine Est GFR ( Amer) Est GFR (Non-Af Amer) POC Glucose (mg/dL) 78 Random Glucose Calcium Phosphorus Magnesium Total Bilirubin AST ALT Alkaline Phosphatase Total Protein Albumin Globulin Albumin/Globulin Ratio Urine Opiates Screen Urine Methadone Screen Ur Barbiturates Screen Ur Phencyclidine Scrn Ur Amphetamines Screen U Benzodiazepines Scrn U Oth Cocaine Metabols U Cannabinoids Screen Alcohol, Quantitative < 10 10/20/17 10/20/17 10/20/17 01:04 07:58 07:58 WBC 5.4 RBC 3.72 L Hgb 12.0 Hct 35.5 MCV 95.4 H MCH 32.4 H MCHC 33.9 RDW 14.9 H Plt Count 64 L MPV 8.4 Neut % (Auto) 87.3 H Lymph % (Auto) 7.4 L [place] % (Auto) 4.8 Eos % (Auto) 0.2 Baso % (Auto) 0.3 Neut # (Auto) 4.7 Lymph # (Auto) 0.4 L [place] # (Auto) 0.3 Eos # (Auto) 0.0 Baso # (Auto) 0.0 Neutrophils % (Manual) 91 H Band Neutrophils % 1 Lymphocytes % (Manual) 5 L Monocytes % (Manual) 3 Eosinophils % (Manual) Platelet Estimate Decreased L RBC Morphology Normal Sodium 139 Potassium 4.2 Chloride 100 Carbon Dioxide 18 L Anion Gap 25 H BUN 13 Creatinine 0.7 L Est GFR ( Amer) > 60 Est GFR (Non-Af Amer) > 60 POC Glucose (mg/dL) Random Glucose 83 Calcium 8.3 L Phosphorus 5.0 H Magnesium 2.0 Total Bilirubin 1.7 H AST 463 H D ALT 269 H Alkaline Phosphatase 88 Total Protein 7.2 Albumin 4.2 Globulin 3.0 Albumin/Globulin Ratio 1.4 Urine Opiates Screen Positive H Urine Methadone Screen Negative Ur Barbiturates Screen Negative Ur Phencyclidine Scrn Negative Ur Amphetamines Screen Negative U Benzodiazepines Scrn Negative U Oth Cocaine Metabols Negative U Cannabinoids Screen Negative Alcohol, Quantitative Attending/Attestation - Attestation I have personally seen and examined this patient.: Yes I have fully participated in the care of the patient.: Yes I have reviewed all pertinent clinical information: Yes Notes (Text): 10/20/17 09:41 I have seen and examined patient with GI fellow. Agree with above documentation with the following additions. In brief, this is a 37 year old male with history of ETOH abuse who presents to hospital with complaint of hematemesis. He was reported to have epistaxis which began yesterday and after swallowing developed emesis with bloody content. Prior to hospitalization, he was consuming heavy amounts of ETOH for the past 3 weeks. He denies abdominal pain, nausea, fever/chills, weight loss, or rectal bleeding. No prior endoscopic evaluation. 12 point review of systems performed, negative aside from mentioned above. Family history: reviewed, patient denies history of GI malignancies Additional physical examination: Abdomen: no palpable hepato/splenomegaly ETOH abuse, acute ETOH hepatitis (DF < 32) Hematemesis Epistaxis - Patient underwent urgent EGD today which showed irregular GEJ and mild gastritis, no active bleeding noted - Suggest use of once daily PPI therapy - Follow up EGD biopsy results - Advance diet as tolerated - Obtain viral hepatitis panel and continue to monitor LFTs - ETOH withdrawal monitoring as per medical team - CT imaging reviewed by me showing no gross GI pathology, would benefit from outpatient follow up and ETOH cessation - No further planned GI intervention, will sign off case. Please reconsult as necessary, thank you.
[2017-10-20 09:23] LABS: BANDS 1 % (0-2); LYMPHOCYTE 5 % (20-40); MONOCYTE 3 % (0-10); NEUTROPHIL 91 % (50-75); TOTAL CELLS COUNTED 100
[2017-10-20 09:24] LABS: PLATELET ESTIMATE DECREASED (NORMAL)
[2017-10-20] MEDS ORDERED: Multiple Vitamins Oral Solution PO SCH (10:00)
[2017-10-20] MEDS ORDERED: Pantoprazole 40 mg EC Tab PO SCH (10:00)
[2017-10-20 13:36] LABS: HEPATITIS B SURFACE AG Negative (NEGATIVE)
[2017-10-20 13:42] LABS: HEPATITIS A IGM NEGATIVE (NEGATIVE); HEPATITIS B CORE AB NEGATIVE (NEGATIVE)
[2017-10-20 13:53] LABS: HEPATITIS C ANTIBODY NEGATIVE (NEGATIVE)
[2017-10-20 15:52] VITALS: RESP 20
[2017-10-21] MEDS: Sodium Chloride 0.9% 1,000 ML IV SCH (06:47)
--- NOTE | 2017-10-21 07:27 | CP.PCM.PN ---
Subjective - Date & Time of Evaluation Date of Evaluation: 10/21/17 Time of Evaluation: 07:40 - Subjective Subjective: Medicine progress note for Dr. Anne Patient seen and examined. Objective - Vital Signs/Intake and Output Vital Signs (last 24 hours): Temp Pulse Resp BP Pulse Ox 98.7 F 73 20 137/66 97 10/21/17 00:00 10/21/17 00:00 10/21/17 00:00 10/21/17 00:00 10/21/17 00:00 Intake and Output: 10/21/17 10/21/17 06:59 18:59 Intake Total 1140 Balance 1140 - Medications Medications: Current Medications Doxycycline Hyclate (Doryx) 100 mg PO Q12H [facility] PRN Reason: Protocol Folic Acid (Folic Acid) 1 mg PO DAILY [facility] Last Admin: 10/20/17 10:30 Dose: 1 mg Sodium Chloride (Sodium Chloride 0.9%) 1,000 mls @ 100 mls/hr IV .Q10H [facility] Last Admin: 10/21/17 06:47 Dose: Not Given Lorazepam (Ativan) 2 mg IVP Q4H [facility] Last Admin: 10/21/17 06:00 Dose: 2 mg Lorazepam (Ativan) 1 mg IVP Q6H PRN PRN Reason: Symptoms of alcohol withdrawl Multivitamins/Vitamin C (Multi-Delyn Liquid) 5 ml PO DAILY [facility] Last Admin: 10/20/17 10:30 Dose: 5 ml Ondansetron HCl (Zofran Inj) 4 mg IVP Q6 PRN PRN Reason: Nausea/Vomiting Pantoprazole Sodium (Protonix Ec Tab) 40 mg PO DAILY [facility] Last Admin: 10/20/17 10:30 Dose: 40 mg Thiamine HCl (Vitamin B1 Tab) 100 mg PO BID [facility] Last Admin: 10/20/17 18:09 Dose: 100 mg - Labs Labs: 10/20/17 07:58 10/20/17 07:58 PT 10.1 SECONDS (9.7-12.2) 10/18/17 23:56 INR 0.9 10/18/17 23:56 APTT 28 SECONDS (21-34) 10/18/17 23:56 - Additional Findings Additional findings: - Constitutional Appears: No Acute Distress - Head Exam Head Exam: ATRAUMATIC, NORMOCEPHALIC - Eye Exam Eye Exam: EOMI, Normal appearance - ENT Exam ENT Exam: Mucous Membranes Moist - Respiratory Exam Respiratory Exam: NORMAL BREATHING PATTERN. absent: Respiratory Distress - Cardiovascular Exam Cardiovascular Exam: REGULAR RHYTHM, +S1, +S2 - GI/Abdominal Exam GI & Abdominal Exam: Normal Bowel Sounds, Soft. absent: Distended, Tenderness - Extremities Exam Extremities exam: Positive for: normal inspection - Neurological Exam Neurological exam: Alert, Oriented x3 - Psychiatric Exam Psychiatric exam: Flat Affect - Skin Skin Exam: Dry, Intact, Normal Color, Warm Assessment and Plan - Assessment and Plan (Free Text) Plan: (1) Alcohol withdrawal Hx of alcohol abuse and withdrawal [facility] protocol Seizure and fall precautions Serum alcohol at admission: 486 Repeat serum alcohol negative Medication: - Scheduled Ativan 2mg IV Q4hr - PRN Ativan 1mg IV Q6 - Banana bag IV at admission - PO thiamine 100mg BID, multivitamins, folic acid (2) Epistaxis Likely secondary to low platelets, secondary to alcohol abuse Chemical anticoagulation contraindicated Type and screen Continue to monitor (3) Abdominal pain Abdominal CT ordered to r/u pancreatitis: Findings include hepatomegaly, fatty liver,colitis/enterocolitis with probable ileus. No obstruction seen. Mildly atrophic pancreas. Lipase 451 (4) Transaminitis Likely secondary to alcohol abuse f/u hepatitis panel Continue to monitor (5) Hematemesis Likely secondary to alcohol abuse, epistaxis and thrombocytopenia GI consult- Dr. Walker, help appreciated EGD did not show sources of bleeding, just some mild gastritis Would benefit from outpatient GI follow up Zofran 4mg IV PRN for nausea/vomiting (6) Prophylactic measure DVT: SCDs; chemical anticoagulation C/I due to thrombocytopenia GI: Protonix 40 mg PO daily Regular Diet Seizure/Fall precautions PT Disposition: Continue to monitor for signs of alcohol withdrawal. Will taper the Ativan as we proceed. Patient has significant alcohol history for many years and he states that he needs to drink in order to be functional.
[2017-10-21 07:34] LABS: BASO % 0.3 % (0.0-2.0); EOS # 0.1 K/uL (0.0-0.7); HEMOGLOBIN 11.4 g/dL (12.0-18.0); LYMPH # 0.7 K/uL (1.0-4.3); LYMPH % 16.3 % (20.0-40.0); MEAN CELL VOLUME 94.5 fL (80.0-94.0); MEAN CORPUSCULAR HEMOGLOBIN 32.7 pg (27.0-31.0); MEAN CORPUSCULAR HGB CONC 34.6 g/dL (33.0-37.0); MEAN PLATELET VOLUME 8.4 fL (7.2-11.7); MONO # 0.3 K/uL (0.0-0.8); MONO % 7.5 % (0.0-10.0); NEUT % 73.9 % (50.0-75.0); NRBC % 0.2 % (0.0-2.0); RBC 3.5 Mil/uL (4.40-5.90); RED CELL DISTRIBUTION WIDTH 14.8 % (11.5-14.5); WHITE BLOOD COUNT 4.1 K/uL (4.8-10.8)
[2017-10-21 07:47] VITALS: BP 129/75; PULSE 93; TEMP 98; O2SAT 98
[2017-10-21 08:19] LABS: ALB/GLOB RATIO 1.3 (1.0-2.1); ALT/SGPT 198 U/L (21-72); AST/SGOT 217 U/L (17-59); BLOOD UREA NITROGEN 5 mg/dL (9-20); CALCIUM 8.5 mg/dl (8.6-10.4); GFR AFRICAN-AMERICAN > 60; GFR NON-AFRICAN AMERICAN > 60
--- NOTE | 2017-10-21 09:02 | CP.PCM.DIS ---
<Patrice Negrete S - Last Filed: 10/21/17 09:51> Provider - Provider Date of Admission: 10/19/17 11:37 Attending physician: Dr. Anne Consults: GI: Dr. Walker ENT: Dr. Moses Time Spent in preparation of Discharge (in minutes): 40 Diagnosis - Discharge Diagnosis (1) Left against medical advice Status: Acute Priority: High (2) Alcohol intoxication Status: Acute Priority: High (3) Epistaxis Status: Chronic Priority: High (4) Transaminitis Status: Acute Priority: Medium (5) Abdominal pain Status: Acute Priority: Medium Hospital Course - Lab Results Lab Results: Most Recent Lab Values WBC 4.1 K/uL (4.8-10.8) L 10/21/17 07:07 RBC 3.50 Mil/uL (4.40-5.90) L 10/21/17 07:07 Hgb 11.4 g/dL (12.0-18.0) L 10/21/17 07:07 Hct 33.0 % (35.0-51.0) L 10/21/17 07:07 MCV 94.5 fL (80.0-94.0) H 10/21/17 07:07 MCH 32.7 pg (27.0-31.0) H 10/21/17 07:07 MCHC 34.6 g/dL (33.0-37.0) 10/21/17 07:07 RDW 14.8 % (11.5-14.5) H 10/21/17 07:07 Plt Count 53 K/uL (130-400) L 10/21/17 07:07 MPV 8.4 fL (7.2-11.7) 10/21/17 07:07 Neut % (Auto) 73.9 % (50.0-75.0) 10/21/17 07:07 Lymph % (Auto) 16.3 % (20.0-40.0) L 10/21/17 07:07 [place] % (Auto) 7.5 % (0.0-10.0) 10/21/17 07:07 Eos % (Auto) 2.0 % (0.0-4.0) 10/21/17 07:07 Baso % (Auto) 0.3 % (0.0-2.0) 10/21/17 07:07 Neut # (Auto) 3.0 K/uL (1.8-7.0) 10/21/17 07:07 Lymph # (Auto) 0.7 K/uL (1.0-4.3) L 10/21/17 07:07 [place] # (Auto) 0.3 K/uL (0.0-0.8) 10/21/17 07:07 Eos # (Auto) 0.1 K/uL (0.0-0.7) 10/21/17 07:07 Baso # (Auto) 0.0 K/uL (0.0-0.2) 10/21/17 07:07 Neutrophils % (Manual) 91 % (50-75) H 10/20/17 07:58 Band Neutrophils % 1 % (0-2) 10/20/17 07:58 Lymphocytes % (Manual) 5 % (20-40) L 10/20/17 07:58 Monocytes % (Manual) 3 % (0-10) 10/20/17 07:58 Eosinophils % (Manual) 1 % (0-4) 10/19/17 23:23 Platelet Estimate Decreased (NORMAL) L 10/20/17 07:58 RBC Morphology Normal 10/20/17 07:58 PT 10.1 SECONDS (9.7-12.2) 10/18/17 23:56 INR 0.9 10/18/17 23:56 APTT 28 SECONDS (21-34) 10/18/17 23:56 Sodium 132 mmol/L (132-148) 10/21/17 07:07 Potassium 3.4 mmol/L (3.6-5.2) L 10/21/17 07:07 Chloride 96 mmol/L (98-107) L 10/21/17 07:07 Carbon Dioxide 22 mmol/L (22-30) 10/21/17 07:07 Anion Gap 17 (10-20) 10/21/17 07:07 BUN 5 mg/dL (9-20) L 10/21/17 07:07 Creatinine 0.6 mg/dL (0.8-1.5) L 10/21/17 07:07 Est GFR ( Amer) > 60 10/21/17 07:07 Est GFR (Non-Af Amer) > 60 10/21/17 07:07 POC Glucose (mg/dL) 78 mg/dL (65-110) 10/19/17 21:05 Random Glucose 138 mg/dL (75-110) H 10/21/17 07:07 Calcium 8.5 mg/dl (8.6-10.4) L 10/21/17 07:07 Phosphorus 2.4 mg/dL (2.5-4.5) L 10/21/17 07:07 Magnesium 1.8 mg/dL (1.6-2.3) 10/21/17 07:07 Total Bilirubin 1.5 mg/dL (0.2-1.3) H 10/21/17 07:07 AST 217 U/L (17-59) H D 10/21/17 07:07 ALT 198 U/L (21-72) H D 10/21/17 07:07 Alkaline Phosphatase 78 U/L (38-126) 10/21/17 07:07 Total Protein 7.3 g/dL (6.3-8.3) 10/21/17 07:07 Albumin 4.0 g/dL (3.5-5.0) 10/21/17 07:07 Globulin 3.2 gm/dL (2.2-3.9) 10/21/17 07:07 Albumin/Globulin Ratio 1.3 (1.0-2.1) 10/21/17 07:07 Lipase 451 U/L (23-300) H 10/18/17 23:56 Urine Opiates Screen Positive (NEGATIVE) H 10/20/17 01:04 Urine Methadone Screen Negative (NEGATIVE) 10/20/17 01:04 Ur Barbiturates Screen Negative (NEGATIVE) 10/20/17 01:04 Ur Phencyclidine Scrn Negative (NEGATIVE) 10/20/17 01:04 Ur Amphetamines Screen Negative (NEGATIVE) 10/20/17 01:04 U Benzodiazepines Scrn Negative (NEGATIVE) 10/20/17 01:04 U Oth Cocaine Metabols Negative (NEGATIVE) 10/20/17 01:04 U Cannabinoids Screen Negative (NEGATIVE) 10/20/17 01:04 Alcohol, Quantitative < 10 mg/dl (0-10) 10/19/17 23:23 Hepatitis A IgM Ab Negative (NEGATIVE) 10/20/17 12:53 Hep Bs Antigen Negative (NEGATIVE) 10/20/17 12:53 Hep B Core IgM Ab Negative (NEGATIVE) 10/20/17 12:53 Hepatitis C Antibody Negative (NEGATIVE) 10/20/17 12:53 Blood Type O POSITIVE 10/18/17 23:56 Antibody Screen Negative 10/18/17 23:56 - Hospital Course Hospital Course: Initial note: Patient is a 37 year old male with no past medical history, who was brought to the ED by his for alcohol abuse and epistaxis. Patient states his nose started to bleeding heavily yesterday and has been constant. He also complains of 1 week of epigastric pain, 4 days of nausea and vomiting, and 3 days of tremors and auditory hallucinations (hears music). Patient states he notice "a lot of blood" in his vomit since yesterday and today. Patient states he has been drinking heavily for 16 days- he drinks 6, 40-oz beers and vodka (unsure quantity). He says there is no specific reason he started to drink heavily. Patient denies chest pain, fevers, dysuria, diarrhea, constipation, unusual bruising, frequent falls, recent illnesses/sick contacts. Per EMR, the patient has been to the hospital several times for alcohol abuse; however, patient states this is his first time in the hospital and does not usually drink heavily. Hospital course: Patient admitted for alcohol intoxication. Patient was managed on scheduled and as needed Ativan. Patient also with recurrent epistaxis and blood in the mouth. It was initially thought that this could be from an upper GI bleed, so gastroenterology was consulted and an EGD was performed which did not show any sources of bleeding. Patient had some bleeding overnight on the date of his leave. A rhino rocket was placed; however, the patient pulled it out himself later this morning. Patient reports that he has a long chronic history of nose bleeds, and he has home remedies for them. At this point, patient wished to leave against medical advice. The patient declined staying in the hospital and wished to leave. This action was against my medical advice. This decision was made with informed refusal. The patient was told that continued treatment in the hospital was necessary. Explanation of the reasons why were discussed. The risks of leaving were explained to the patient and include, but are not limited to, worsening of known or currently unknown conditions, permanent disability and from undiagnosed or untreated conditions. The patient has the capacity to make this informed decision and understands my explanation of the current medical problem and risks of leaving. The patient voluntarily accepts these risks and signed an AMA form documenting our conversation. The patient was given the opportunity to ask questions and reconsider. The patient was encouraged to return to the Emergency Department at any time for further care. This is a summary of the hospital course. For more information, refer to the medical records. Discharge Exam - Additional Findings Additional findings: - Constitutional Appears: No Acute Distress - Head Exam Head Exam: ATRAUMATIC, NORMOCEPHALIC - Eye Exam Eye Exam: EOMI, Normal appearance - ENT Exam ENT Exam: Mucous Membranes Moist Additional Comments: Gauze with some blood in the right nostril - Respiratory Exam Respiratory Exam: NORMAL BREATHING PATTERN. absent: Respiratory Distress - Cardiovascular Exam Cardiovascular Exam: REGULAR RHYTHM, +S1, +S2 - GI/Abdominal Exam GI & Abdominal Exam: Normal Bowel Sounds, Soft. absent: Distended, Tenderness - Extremities Exam Extremities exam: Positive for: normal inspection - Neurological Exam Neurological exam: Alert, Oriented x3 Additional Comments: Non-tremulous - Psychiatric Exam Psychiatric exam: Flat Affect - Skin Skin Exam: Dry, Intact, Normal Color, Warm Discharge Plan - Follow Up Plan Condition: UNKNOWN Disposition: AGAINST MEDICAL ADVICE <[place] Anne - Last Filed: 10/21/17 15:56> Provider - Provider Date of Admission: 10/19/17 11:37 Attending physician: Ayad Lucia MD Hospital Course - Lab Results Lab Results: Most Recent Lab Values WBC 4.1 K/uL (4.8-10.8) L 10/21/17 07:07 RBC 3.50 Mil/uL (4.40-5.90) L 10/21/17 07:07 Hgb 11.4 g/dL (12.0-18.0) L 10/21/17 07:07 Hct 33.0 % (35.0-51.0) L 10/21/17 07:07 MCV 94.5 fL (80.0-94.0) H 10/21/17 07:07 MCH 32.7 pg (27.0-31.0) H 10/21/17 07:07 MCHC 34.6 g/dL (33.0-37.0) 10/21/17 07:07 RDW 14.8 % (11.5-14.5) H 10/21/17 07:07 Plt Count 53 K/uL (130-400) L 10/21/17 07:07 MPV 8.4 fL (7.2-11.7) 10/21/17 07:07 Neut % (Auto) 73.9 % (50.0-75.0) 10/21/17 07:07 Lymph % (Auto) 16.3 % (20.0-40.0) L 10/21/17 07:07 [place] % (Auto) 7.5 % (0.0-10.0) 10/21/17 07:07 Eos % (Auto) 2.0 % (0.0-4.0) 10/21/17 07:07 Baso % (Auto) 0.3 % (0.0-2.0) 10/21/17 07:07 Neut # (Auto) 3.0 K/uL (1.8-7.0) 10/21/17 07:07 Lymph # (Auto) 0.7 K/uL (1.0-4.3) L 10/21/17 07:07 [place] # (Auto) 0.3 K/uL (0.0-0.8) 10/21/17 07:07 Eos # (Auto) 0.1 K/uL (0.0-0.7) 10/21/17 07:07 Baso # (Auto) 0.0 K/uL (0.0-0.2) 10/21/17 07:07 Neutrophils % (Manual) 91 % (50-75) H 10/20/17 07:58 Band Neutrophils % 1 % (0-2) 10/20/17 07:58 Lymphocytes % (Manual) 5 % (20-40) L 10/20/17 07:58 Monocytes % (Manual) 3 % (0-10) 10/20/17 07:58 Eosinophils % (Manual) 1 % (0-4) 10/19/17 23:23 Platelet Estimate Decreased (NORMAL) L 10/20/17 07:58 RBC Morphology Normal 10/20/17 07:58 PT 10.1 SECONDS (9.7-12.2) 10/18/17 23:56 INR 0.9 10/18/17 23:56 APTT 28 SECONDS (21-34) 10/18/17 23:56 Sodium 132 mmol/L (132-148) 10/21/17 07:07 Potassium 3.4 mmol/L (3.6-5.2) L 10/21/17 07:07 Chloride 96 mmol/L (98-107) L 10/21/17 07:07 Carbon Dioxide 22 mmol/L (22-30) 10/21/17 07:07 Anion Gap 17 (10-20) 10/21/17 07:07 BUN 5 mg/dL (9-20) L 10/21/17 07:07 Creatinine 0.6 mg/dL (0.8-1.5) L 10/21/17 07:07 Est GFR ( Amer) > 60 10/21/17 07:07 Est GFR (Non-Af Amer) > 60 10/21/17 07:07 POC Glucose (mg/dL) 78 mg/dL (65-110) 10/19/17 21:05 Random Glucose 138 mg/dL (75-110) H 10/21/17 07:07 Calcium 8.5 mg/dl (8.6-10.4) L 10/21/17 07:07 Phosphorus 2.4 mg/dL (2.5-4.5) L 10/21/17 07:07 Magnesium 1.8 mg/dL (1.6-2.3) 10/21/17 07:07 Total Bilirubin 1.5 mg/dL (0.2-1.3) H 10/21/17 07:07 AST 217 U/L (17-59) H D 10/21/17 07:07 ALT 198 U/L (21-72) H D 10/21/17 07:07 Alkaline Phosphatase 78 U/L (38-126) 10/21/17 07:07 Total Protein 7.3 g/dL (6.3-8.3) 10/21/17 07:07 Albumin 4.0 g/dL (3.5-5.0) 10/21/17 07:07 Globulin 3.2 gm/dL (2.2-3.9) 10/21/17 07:07 Albumin/Globulin Ratio 1.3 (1.0-2.1) 10/21/17 07:07 Lipase 451 U/L (23-300) H 10/18/17 23:56 Urine Opiates Screen Positive (NEGATIVE) H 10/20/17 01:04 Urine Methadone Screen Negative (NEGATIVE) 10/20/17 01:04 Ur Barbiturates Screen Negative (NEGATIVE) 10/20/17 01:04 Ur Phencyclidine Scrn Negative (NEGATIVE) 10/20/17 01:04 Ur Amphetamines Screen Negative (NEGATIVE) 10/20/17 01:04 U Benzodiazepines Scrn Negative (NEGATIVE) 10/20/17 01:04 U Oth Cocaine Metabols Negative (NEGATIVE) 10/20/17 01:04 U Cannabinoids Screen Negative (NEGATIVE) 10/20/17 01:04 Alcohol, Quantitative < 10 mg/dl (0-10) 10/19/17 23:23 Hepatitis A IgM Ab Negative (NEGATIVE) 10/20/17 12:53 Hep Bs Antigen Negative (NEGATIVE) 10/20/17 12:53 Hep B Core IgM Ab Negative (NEGATIVE) 10/20/17 12:53 Hepatitis C Antibody Negative (NEGATIVE) 10/20/17 12:53 Blood Type O POSITIVE 10/18/17 23:56 Antibody Screen Negative 10/18/17 23:56 Attending/Attestation - Attestation I have personally seen and examined this patient.: No I have fully participated in the care of the patient.: Yes I have reviewed all pertinent clinical information, including history, physical exam and plan: Yes Notes (Text): 10/21/17 15:56 Medical attending: From what I understand the patient left AGAINST MEDICAL ADVICE. He left before I could round on the patient this morning. As reported before he was thought that the blood in his mouth could represent an upper GI bleed however he did undergo an EGD and this was not the source of the bleeding. The bleeding was indeed from the nose area. The situation is made much worse since he has a very heavy alcoholic likely the alcohol is inhibiting his platelet formation as well as platelet function. Had he stayed we probably would've tried to give him some DDAVP to see if this will help with the nosebleeds but he has decided to leave AMA Thank you very much, [place] Anne
== END 2017-10-21 09:41 | disposition left against medical advice (07) | DRG 182 ==
LOC: C.ER 22:41 → C.9E 10-19 11:37 → C.3T 10-19 12:16
PROVIDERS: ADMIT Family Medicine; ATTEND Family Medicine
DX: K29.20 Alcoholic gastritis without bleeding (principal); K92.0 Hematemesis; D69.6 Thrombocytopenia, unspecified; F11.10 Opioid abuse, uncomplicated; R04.0 Epistaxis; Z72.0 Tobacco use; I10 Essential (primary) hypertension; F10.120 Alcohol abuse with intoxication, uncomplicated; Y90.8 Blood alcohol level of 240 mg/100 ml or more